=== PATIENT | male | born 1960 | race Caucasian/White ===

== ENCOUNTER 2019-07-14 11:15 | Emergency (ER) | payer OTHER ==
[2019-07-14] MEDS ORDERED: diphenhydrAMINE 50 MG/ML VIAL ONE (11:29)
[2019-07-14] MEDS ORDERED: methylPREDNISolone Sod Succ/PF 125 MG/2 ML VIAL ONE (11:29)
[2019-07-14] MEDS ORDERED: Famotidine/PF 20 mg/2ml Vial ONE (11:29)
== END 2019-07-14 13:19 | disposition home or self-care (01) ==
LOC: SCSER 11:15
DX: H10.11 Acute atopic conjunctivitis, right eye (principal); L50.9 Urticaria, unspecified; F17.220 Nicotine dependence, chewing tobacco, uncomplicated
CPT/HCPCS: 94760; 96374; 96375; J1200; J2930; S0028